=== PATIENT | male | born 1960 | race Caucasian/White ===

== ENCOUNTER → 2017-01-03 | Outpatient (CLI) | payer BC ==
[~2017-01-03] MED LIST: IOPAMIDOL (ISOVUE 370) 100 ML BTL IV ONE
== END ==
LOC: FIMAGING 11:26
PROVIDERS: ATTEND Nurse Practitioner
DX: R05 Cough (principal); R06.02 Shortness of breath; C90.00 Multiple myeloma not having achieved remission
CPT/HCPCS: Q9967

== ENCOUNTER 2017-12-07 12:38 | Emergency (ER) | payer BC ==
--- NOTE | 2017-12-07 13:20 | EDPHY ---
H & P Time Seen by Provider: 12/07/17 13:20 HPI/ROS: CHIEF COMPLAINT: Fever HISTORY OF PRESENT ILLNESS: Patient had stem cell transplant for multiple myeloma and [facility] [place] macroglobulinemia [facility] was [facility] 2 days ago. He had a right subclavian central line was discharged on Sunday of this week. Over the last 24 hr he has had intermittent fevers up to 100.6 but no other symptoms. He does feel tired. Specifically no sore throat or headache, no skin rash, no urinary or gastrointestinal symptoms, no cough. REVIEW OF SYSTEMS: Eye: no change in vision ENT: no sore throat Cardiac: no chest pain or syncope Pulmonary: no cough or SOB Abdomen: no vomiting, diarrhea, abdominal pain Musculoskeletal: no back pain Skin: no rash Neuro: no headache Constitutional: HPI : no urinary symptoms A comprehensive 10 point review of systems is otherwise negative aside from elements mentioned in the history of present illness. PAST MEDICAL HISTORY: Recent stem cell transplant for Waldensrtrom's and multiple myeloma Social history: Here with his mom General Appearance: Alert and conversant, cooperative. Eyes: No scleral icterus. ENT, Mouth: Normal mucous membranes. Normal pharynx without erythema or exudate or trismus Respiratory: Normal respiratory effort, breath sounds equal, lungs are clear to auscultation. Cardiovascular: Regular rate and rhythm. Gastrointestinal: Abdomen is soft and non tender. Neurological: Alert, face symmetric, normal motor and sensory in extremities. Skin: Warm and dry, no rashes. The right subclavian site was line is pulled looks clean and dry without redness or surrounding swelling or lymphangitis. Musculoskeletal: No peripheral edema. Psychiatric: Not agitated. Emergency Department course/MDM: Plan for chest x-ray, urinalysis, CBC as well as influenza testing. 1510: Discussed with Dr. Norma Gay, follow clinically, continue acyclovir and Levaquin, no additional diagnostics or treatment at this time. No cough, not short of breath, and oxygen saturation 94%. Reviewed radiology chest x-ray report after patient departed, clinically more likely to be atelectasis, on Levaquin already, follow symptoms. Not neutropenic. Smoking Status: Never smoked Constitutional: Initial Vital Signs Temperature (C) 37.4 C 12/07/17 12:39 Heart Rate 109 H 12/07/17 12:39 Respiratory Rate 20 12/07/17 12:39 Blood Pressure 122/64 H 12/07/17 12:39 O2 Sat (%) 94 12/07/17 12:39 O2 Delivery Mode Room Air Allergies/Adverse Reactions: morphine Allergy (Verified 12/07/17 12:47) Home Medications: Medication Instructions Recorded ARMOUR THYROID 12/07/17 Acyclovir 12/07/17 Levaquin 12/07/17 Phenergan 12/07/17 Procardia 10 mg (*) 12/07/17 Medical Decision Making - Diagnostics Imaging Results: No pneumonia on chest x-ray personally interpreted Imaging: I viewed and interpreted images myself Differential Diagnosis: Differential for fever considered including but not limited to UTI, pneumonia, influenza, sepsis - Data Points Laboratory Results: Laboratory Results 12/07/17 13:29 12/07/17 13:29 Departure - Departure Disposition: Home, Routine, Self-Care Clinical Impression: Fever Qualifiers: Fever type: unspecified Qualified Code(s): R50.9 - Fever, unspecified Condition: Good Instructions: Fever in Adults (ED) Additional Instructions: WBC 11.38, Flu negative, no pneumonia or urinary tract infection Referrals: Rich Che MD [Medical Doctor] - As per Instructions
[2017-12-07 13:55] LABS: PLATELET COUNT 45 10^3/uL (150-400)
[2017-12-07 15:36] VITALS: BP 134/72; PULSE 107; RESP 16; TEMP 99; O2SAT 92
== END 2017-12-07 15:35 | disposition home or self-care (01) ==
DX: R50.9 Fever, unspecified (principal)